=== PATIENT | female | born 1965 | race Two or more races ===

== ENCOUNTER 2017-12-01 08:16 | Outpatient (CLI) | payer OTHER | END 2017-12-01 08:36 | disposition home or self-care (01) | LOC: RAD 08:16 | DX: M12.9 Arthropathy, unspecified (principal); M19.90 Unspecified osteoarthritis, unspecified site ==

== ENCOUNTER 2018-12-02 10:31 | Outpatient (CLI) | payer OTHER | END 2018-12-02 10:35 | disposition home or self-care (01) | LOC: MRI 10:31 | DX: G43.901 Migraine, unspecified, not intractable, with status migrainosus (principal); R41.2 Retrograde amnesia; I63.50 Cerebral infarction due to unspecified occlusion or stenosis of unspecified cerebral artery | CPT/HCPCS: 70551 ==